=== PATIENT | female | born 1945 | race Caucasian/White ===

== ENCOUNTER → 2016-11-05 | Outpatient (CLI) | payer MEDICARE, BC ==
[~2016-11-05] MED LIST: ASPIRIN325 MG PO; CALCIUM 600 MG1 EACH PO; CENTRUM SILVER1 EAC1 PO; FISH OIL 1,0001 EAC1 PO; GLUCOPHAGE XR500 M1 PO; HYDROCODON-ACE1 EAC4 PO; LOPRESSOR25 MG PO; PRAVACHOL40 MG PO; TRICOR 160 MG160 MG PO; TYLENOL EXTRA500 MG PO
--- NOTE | ~2016-11-05 | ESTC ---
Cardiac Perfusion Imaging Demographics Patient Name YUKI Reddy Gender Female Patient Number [id number] Race Visit Number [id number] Ethnicity Corporate ID Room Number Accession Number [id number] Height Date of 1945 Weight Age 71 year(s) BSA Referring Physician Terri DUMONT MD Interpreting Terri Whatley Date of study 11/05/2016 Physician Supervising /YAREDP Terri GIORDANO Technologist Delmi Berman MD Ordering Physician Terri Whatley Stress Nishant Villanueva RVT, marine engineering technicians RDCS Stress ECG Reading Terri Whatley Nurse Vince Wills RN Physician Procedure Procedure Type: Nuclear Stress Test:Pharmacological, Lexiscan, Cardiolite Stress Test Procedure Start time: 11/05/2016 08:00 Indications: Shortness of breath. Risk Factors The patient risk factors include:prior PCI on 03/07/2003;former tobacco use, hypertension, family history of premature CAD appeared at age 53, orally-treated diabetes mellitus and ( years not smokin). Conclusions Summary Small distal anterior and apical moderate fixed defect most consistent with soft tissue attenuation. LVEF:62%. Normal wall motion. Stress Protocols Resting ECG RSR. Non specific ST-T changes. Pre-stress physical exam: Un changed. Predicted HR: 147 bpm ECG Findings No ECG changes suggestive of ischemia. Arrhythmias No rhythm abnormality. Symptoms Chest tightness. Stress Interpretation Chest tightness with Lexiscan. Normal HR response. Hypertensive BP response. No ischemia. No arrythmias. Imaging Results High risk findings Summed scores - Summed stress score: 16 - Summed rest score: 9 - Summed difference score: 7 Stress ejection Ejection fraction:62 % EDV :93 ml ESV :35 ml Stroke volume :58 ml LV mass :117 gr LV size:Normal Normal LV function Imaging Protocols Rest Stress Isotope:Tc99m Sestamibi IV Isotope: Tc99m Sestamibi IV Isotope dose:11.3 mCi Isotope dose:32.7 mCi Date:11/05/2016 07:15 Date:11/05/2016 08:56 Technique: SPECT Technique: Gated Supine SPECT Supine Scan Time:45-60 minutes post Scan Time:45-60 minutes post injection injection Procedure Medications - Regadenoson (Lexiscan) 0.4 mg IV over 10-15 sec. I.V. . Medical History Admission Data Admission date: 11/05/2016 Admission Time: 06:59 Hospital Status: Outpatient. Signatures dtt: Phylicia Murray dtd: 11/05/16 0800 Physician Self Edit
== END | disposition disaster alternative care site (69) ==
LOC: GRAD 06:59
DX: R06.02 Shortness of breath (principal); R94.39 Abnormal result of other cardiovascular function study; I10 Essential (primary) hypertension; E11.9 Type 2 diabetes mellitus without complications; Z87.891 Personal history of nicotine dependence; Z82.49 Family history of ischemic heart disease and other diseases of the circulatory system; Z98.61 Coronary angioplasty status
CPT/HCPCS: A9500; J2785

== ENCOUNTER 2016-11-06 09:58 | Day surgery (SDC) | payer MEDICARE, BC ==
[~2016-11-06] VITALS: Ht 157.5 cm; Wt 70.9 kg
--- NOTE | ~2016-11-06 | OR ---
PATIENT'S NAME: CHRISSY MIRZA [facility] AGE: 71 Y [address] ROOM: [place] [address] LOCATION: [facility] ADMIT DATE: 11/06/2016 OR/Procedure Report DISCHARGE DATE: FAMILY PHYSICIAN: Alla Alcaraz MD ATTENDING PHYSICIAN: Harish Chin SURGEON: Harish Chin MD SPORTING GOODS SALES ASSOCIATE: DATE OF PROCEDURE: 11/06/2016 PREOPERATIVE DIAGNOSES: 1. Lumbar degenerative disk disease. 2. Lumbar herniated disk. 3. Lumbar stenosis. 4. Lumbar radiculopathy. POSTOPERATIVE DIAGNOSES: 1. Lumbar degenerative disk disease. 2. Lumbar herniated disk. 3. Lumbar stenosis. 4. Lumbar radiculopathy. PROCEDURE PERFORMED: Lumbar hemilaminotomy with partial diskectomy, left L3- 4. FULL STACK SOFTWARE ENGINEER: VERONICA Gamino. ANESTHESIA: General. ESTIMATED BLOOD LOSS: 20 mL. COMPLICATIONS: None. SPECIMENS: None. FINDINGS: Large herniated disk, left L3-4 caudal to the disk space. OPERATIVE INDICATIONS: The patient is a 71-year-old female who I have followed for symptomatic lumbar herniated disk and stenosis with radiculopathy. She had failed conservative treatment, was offered surgery in the form of a lumbar laminotomy and partial diskectomy. After details, risks, benefits, and options were explained, she freely consented to surgery. OPERATIVE NARRATIVE: After the patient was correctly identified, operative site initialed, she was taken back to the operating room, placed in supine position. After general anesthesia was induced, she was placed in the prone PATIENT'S NAME: CHRISSY MIRZA [facility] AGE: 71 Y [address] ROOM: [place] [address] LOCATION: [facility] ADMIT DATE: 11/06/2016 OR/Procedure Report DISCHARGE DATE: FAMILY PHYSICIAN: Alla Alcaraz MD ATTENDING PHYSICIAN: Harish Chin position on the [place] table with all bony prominences well-padded and protected. The back was prepped and draped in usual sterile fashion. Time- out was taken to verify patient and procedure. 10 mL of 0.25% Marcaine with epinephrine was injected in line with the incision. A 10-blade was used to make a midline incision over the operative levels. Dissection was taken down through subcutaneous tissue with electrocautery. The fascia was opened in the midline and then a left paraspinal dissection was performed using a Quesada elevator to expose posterior elements of L3 and L4. Self-retaining D[place] Santos retractor was placed in the wound. A high-speed lindsay and Kerrisons were used to create a generous laminotomy involving the inferior aspect of L3 and superior aspect of L4. After the laminotomy was complete, the limb plane was resected and the dura and traversing nerve roots were identified. Gentle medial retraction allowed identification of the caudally migrated herniated disk. It was teased free with a nerve hook, grasped and removed with micro pituitaries. After the decompression was completed, the area was irrigated and dried. There was no active bleeding. 80 mg of Depo-Medrol was injected dorsally over the dura and nerve root. The retractors were removed from the wound and the fascia was closed with interrupted #1 Vicryl suture, 0 Vicryl in subcutaneous tissue, and stella in the skin. Sterile dressing was applied, and the patient was awakened from anesthesia and taken to recovery room in stable condition. MD JOSE M ENCARNACION/elmer /[id number] d: 11/06/16 2248 t: 11/07/16 0953, OPERATIVE SUMMARY
--- NOTE | ~2016-11-06 | HP ---
PATIENT'S NAME: CHRISSY MIRZA [facility] AGE: 71 Y [address] ROOM: [place] [address] LOCATION: [facility] ADMIT DATE: 11/06/2016 History & Physical DISCHARGE DATE: FAMILY PHYSICIAN: Alla Alcaraz MD ATTENDING PHYSICIAN: Harish Chin DATE OF SERVICE: CHIEF COMPLAINT: Low back pain. HISTORY OF PRESENT ILLNESS: The patient was admitted earlier today to the care of Dr. Harish Chin for lumbar back surgery. I have been asked to follow her for medical illness. She has also been cleared for surgery by Dr. Murray, one of our local blow molding machine tender. She has history of non ST-segment elevation AK in 2002 and at that time, underwent placement of a patent stent. At that time, she was found to have a 40% residual proximal LAD lesion of 50%, mild circumflex lesion. She had a preop evaluation per Dr. Murray, see notes in the chart. The patient when I see her is sitting on side of the bed, O2 sats normal with O2 supplement per nasal prong. Says her pain control is adequate. She is having normal feeling in her legs now. No nausea or vomiting. She does have a history also of elevated cholesterol, diabetes mellitus type 2, hypertension; essential, and hyperlipidemia. CURRENT MEDICATIONS: 1. Metformin 500 mg b.i.d. 2. Metoprolol 25 mg in the morning. 3. Aspirin 325 a day. 4. Fish oil 1000 mg three per day. 5. Calcium with vitamin D and magnesium, vitamin 600 mg 2 per day. 6. [place] 5/325 as needed. 7. Tylenol as needed. ALLERGIES TO MEDICATION: To morphine. SOCIAL HISTORY: Does not smoke. FAMILY HISTORY: No family history of problems with anesthesia or bleeding disorder. IMMUNIZATION STATUS: PATIENT'S NAME: CHRISSY MIRZA [facility] AGE: 71 Y [address] ROOM: [place] [address] LOCATION: [facility] ADMIT DATE: 11/06/2016 History & Physical DISCHARGE DATE: FAMILY PHYSICIAN: Alla Alcaraz MD ATTENDING PHYSICIAN: Harish Chin Unknown. REVIEW OF SYSTEMS: Positive for diabetes mellitus type 2, hyperlipidemia, hypertension, previous AK, stent placement in the past for coronary artery disease in the mid right coronary artery. Hyperlipidemia. PHYSICAL EXAMINATION: VITAL SIGNS: Blood pressure 165/80, pulse is 80, respirations 12, O2 saturation normal with O2 supplement per nasal prong. HEENT: Pupils react to light. TMs not visualized. Posterior pharynx is clear. NECK: Unremarkable. No adenopathy. LUNGS: Clear anteriorly. HEART: No murmur. Regular rhythm. BREAST: Not done. ABDOMEN: Benign without masses or tumor. EXTREMITIES: Unremarkable. NEUROLOGIC: Grossly intact. I did not check her surgical wound. IMPRESSION: 1. Lumbar back pain status post operation today per Dr. Chin. 2. Hypertension, essential. 3. Known coronary disease with previous ST-elevation [place] 2002 status post stent right coronary artery. 4. Residual coronary artery disease, see above. 5. Hyperlipidemia. 6. Diabetes mellitus type 2. PLAN: Follow daily. Further treatment as indicated. AMY PATEL MD FLOOR HAND/modl /[id number] D: [id number] T: 034 HISTORY & PHYSICAL
--- NOTE | 2016-11-06 17:41 | NUR ---
Significant Event: From PACU at 1715. Transfered to unit bed with full lift and two assist. CSM WNL. No void at this time. Dressing to lower back C/D?I. [place] 2 tabs in PACU at 1620. On 3L O2 per nasal cannula. Follow up:
--- NOTE | 2016-11-07 04:34 | NUR ---
Shift Summary: Patient can ambulate without assistance wearing her corset lumbar brace. No CSM deficits. Dressing to back free from drainage. Tolerating diet well. Voiding without difficulty. Will go home today.
--- NOTE | 2016-11-07 09:00 | NUR ---
0900 Introduced self/role to patient, SW Client Technical Professional Stephanie also present. Patient was working with therapies discussing DME items. Patient lives in [place], plans to go home later today. She wasn't aware of any needs at this time. Added my name to her marker board.
--- NOTE | 2016-11-07 14:25 | NUR ---
PAITENT DOING WELL. DISMISSED TO HOME. RX SLIP, RETURN APPT TIME, NEW MEDS REVIEWED, WOUND/DRESSING CARE, ALL REVIEIWED WITH PATIENT AND SPOUSE. PATIENT VERBALIZES UDNERSTANDING OF INSTRUCITONS. TO FRONT DOOR WITH BELONGINGS TO MEET .
== END 2016-11-07 14:00 | disposition disaster alternative care site (69) ==
LOC: G3N 09:58 → GSDC 09:58 → G3N 17:15 → GSDC 11-07 14:00
PROC: 0SB20ZZ Excision of Lumbar Vertebral Disc, Open Approach (ICD-10-PCS; principal; 2016-11-06)
PROC: 01NB0ZZ Release Lumbar Nerve, Open Approach (ICD-10-PCS; 2016-11-06)
DX: M51.16 Intervertebral disc disorders with radiculopathy, lumbar region (principal); M48.06 Spinal stenosis, lumbar region; I25.10 Atherosclerotic heart disease of native coronary artery without angina pectoris; I10 Essential (primary) hypertension; E78.5 Hyperlipidemia, unspecified; E11.9 Type 2 diabetes mellitus without complications; Z88.6 Allergy status to analgesic agent; Z79.84 Long term (current) use of oral hypoglycemic drugs; Z79.82 Long term (current) use of aspirin; Z79.899 Other long term (current) drug therapy
CPT/HCPCS: G8978; G8979; G8980; J0171; J0690; J1040; J1100; J1170; J2001; J2405; J3010; J3370; J7030

== ENCOUNTER → 2017-01-19 | Outpatient (CLI) | payer MEDICARE, BC ==
[2017-01-19 11:17] LABS: CREATININE 0.5 mg/dL (0.5-1.1); ESTIMATED GFR (MDRD EQUATION) > 60
== END | disposition disaster alternative care site (69) ==
LOC: GLAB 10:30
PROVIDERS: Orthopaedic Surgery Orthopaedic Surgery of the Spine
DX: Z47.89 Encounter for other orthopedic aftercare (principal); Z98.890 Other specified postprocedural states